=== PATIENT | female | born 1995 | race Caucasian/White ===

== ENCOUNTER 2018-01-01 11:36 | Emergency (ER) | payer SELFPAY | END 2018-01-01 12:32 | disposition home or self-care (01) | LOC: FTE 11:36 | DX: L73.9 Follicular disorder, unspecified (principal) | CPT/HCPCS: 99283 ==

== ENCOUNTER 2018-03-16 13:56 | Emergency (ER) | payer SELFPAY ==
[2018-03-16] MEDS: CEFTRIAXONE 1 GM INJ IM (15:33)
[2018-03-16] MEDS: LIDOCAINE 1% (MPF) 5 ML VIAL INJ (15:33)
== END 2018-03-16 15:36 | disposition home or self-care (01) ==
LOC: FTE 13:56
DX: S81.832A Puncture wound without foreign body, left lower leg, initial encounter (principal); F17.210 Nicotine dependence, cigarettes, uncomplicated; W54.0XXA Bitten by dog, initial encounter; Y92.9 Unspecified place or not applicable
CPT/HCPCS: 96372; 99284-25